=== PATIENT | male | born 2000 | race African-American/Black ===

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

== ENCOUNTER 2021-08-13 23:36 | Inpatient (IN) | payer OTHER, SELFPAY ==
[2021-08-13 23:39] VITALS: BP 145/92; PULSE 104; RESP 18; TEMP 36.3; O2SAT 98
[2021-08-13 23:54] LABS: Glucose Point of Care > 500 mg/dl (65-105)
[2021-08-14] VITALS (14 sets, daily range): BP systolic 135–154; BP diastolic 78–111; PULSE 81–112; RESP 13–20; TEMP 36–36.7; O2SAT 96–100; BMI 34.0
[2021-08-14 00:15] LABS: Basophils Percent Auto 0.4 % (0.2-1.2); Eosinophils Percent Auto 0.4 % (0-4.4); Hematocrit 49.1 % (42.0-52.0); Immature Granulocyte Absolute 0.03 K/mm3 (0.00-0.031); Immature Granulocyte Percent A 0.3 % (0-0.5); Lymphocytes Absolute Auto 3.66 K/mm3 (0.9-3.2); Lymphocytes Percent Auto 39.2 % (18.3-44.2); Mean Corpuscular HGB Conc 34.6 g/dl (32-36); Mean Corpuscular Hemoglobin 29.1 pg (26-34); Mean Corpuscular Volume 83.9 fl (80-100); Mean Platelet Volume 10.9 fl (7.4-10.4); Monocytes Absolute Auto 0.8 K/mm3 (0.1-0.6); Monocytes Percent Auto 8.7 % (2.6-8.5); Neutrophils Absolute Auto 4.8 K/mm3 (1.3-6.7); Platelet Count Result 334 k/mm3 (150-375); Red Blood Count 5.85 M/mm3 (4.6-6.20); Red Cell Distribution Width 11.9 % (11.5-14.5); White Blood Count 9.3 K/mm3 (4.5-10.0)
[2021-08-14 00:18] LABS: Alveolar/Arterial O2 Gradient 17.8 mmHg; Base Excess ABG -0.2 mEq/l (+/-2.0); Carboxyhemoglobin 0.4 % THb (0-2.0); Fractional Inspired Oxygen 21 %; HCO3 ABG 24.4 mEq/l (22.0-26.0); Methemoglobin ABG 0.3 %THb (0-1.5); Oxygen Content ABG 23.4 %vol (16.0-22.0); Oxygen Saturation ABG 96.3 % (95.0-100.0); Oxyhemoglobin 95.7 % THb (90.0-100.0); Reduced Hemoglobin 3.6 %THb (0-5.0); Total Hemoglobin 17.4 g/dL (12.0-18.0); pH ABG 7.403 (7.350-7.450)
[2021-08-14 00:20] LABS: Device ROOM AIR; Modified Allen's Test Pass; Site Drawn RIGHT RADIAL
[2021-08-14] MEDS: SODIUM CHLORIDE 0.9% IV 1,000 ML 999 ML IV CONT ×4 (00:28→05:00)
--- NOTE | 2021-08-14 00:31 | ED.GENADULT ---
HPI - General Adult General Chief complaint: Unspecified Stated complaint: High BS, nausea, urinary frequency Time Seen by Provider: 08/13/21 23:48 History of Present Illness HPI narrative: Patient is a 20-year-old male who presents to the ER with elevated blood sugars. Patient reports he has been feeling fatigued over the last 1 to 2 weeks. He has noticed increased thirst and urination. Family member who has diabetes thought these were symptoms of hyperglycemia and did a random blood sugar that was greater than 500. Patient has no previous history of diabetes. Related Data Allergies Allergy/AdvReac Type Severity Reaction Status Date / Time No Known Allergies Allergy Unknown Unverified 10/08/20 11:11 Review of Systems Review of Systems: All systems reviewed & are unremarkable except as noted in HPI and below Constitutional: Constitutional: Denies chills, Denies fever(s) and Reports lethargy ENT: Denies nasal congestion and Denies sore throat Cardiovascular: Cardiovascular: Denies chest pain, Denies radiating jaw, neck or arm pain and Denies palpitations Gastrointestinal: Gastrointestinal: Denies abdominal pain, Denies nausea and Denies vomiting Genitourinary: Genitourinary: Denies dysuria and Reports urinary frequency PMFSH Past Medical History Medical History No significant past medical history Surgical History Surgical History No history of previous surgery Family History Family History Other Diabetes mellitus Social History Social History Smoking status: Never smoker Alcohol intake: never Substance use: never Gender identity (if verbalized by the patient): Male Exam Narrative: GENERAL: Well-appearing, well-nourished, and in no acute distress. HEAD: Normocephalic, atraumatic. ENT: Mucous membranes moist. CHEST: Clear to auscultation. No respiratory distress. HEART: Regular rate and rhythm. Normal peripheral pulses. ABDOMEN: Soft, nontender, nondistended. EXTREMITIES: Normal range of motion. No edema. SKIN: Warm, dry, no rash. NEURO: Alert and oriented x3. PSYCH: Normal mood and affect. Course Course Emergency Course: Patient resting comfortably. Informed of results. Admit to hospitalist service for further treatment. Vital Signs Vital signs: Vital Signs Temperature 97.4 F L 08/13/21 23:39 Pulse Rate 104 H 08/13/21 23:39 Respiratory Rate 18 08/13/21 23:39 Blood Pressure 145/92 H 08/13/21 23:39 Pulse Oximetry 98 08/13/21 23:39 Temperature 97.4 F L 08/13/21 23:39 Pulse Rate 90 08/14/21 03:01 Respiratory Rate 16 08/14/21 03:01 Blood Pressure 144/99 H 08/14/21 03:01 Pulse Oximetry 100 08/14/21 03:01 Medical Decision Making Vital Signs Vital Signs: Vital Signs Temperature 97.4 F L 08/13/21 23:39 Pulse Rate 104 H 08/13/21 23:39 Respiratory Rate 18 08/13/21 23:39 Blood Pressure 145/92 H 08/13/21 23:39 Pulse Oximetry 98 08/13/21 23:39 Temperature 97.4 F L 08/13/21 23:39 Pulse Rate 90 08/14/21 03:01 Respiratory Rate 16 08/14/21 03:01 Blood Pressure 144/99 H 08/14/21 03:01 Pulse Oximetry 100 08/14/21 03:01 Lab Data Result diagrams: 08/14/21 00:10 08/14/21 01:07 Labs: Lab Results 08/13/21 08/13/21 08/14/21 Range/Units 00:10 23:50 00:08 WBC (4.5-10.0) K/mm3 RBC (4.6-6.20) M/mm3 Hgb (14.0-18.0) g/dL Hct (42.0-52.0) % MCV (80-100) fl MCH (26-34) pg MCHC (32-36) g/dl RDW (11.5-14.5) % Plt Count (150-375) k/mm3 MPV (7.4-10.4) fl Immature Gran % (Auto) (0-0.5) % Neut % (Auto) (45.5-73.1) % Lymph % (Auto) (18.3-44.2) % Amelia % (Auto) (2.6-8.5) % Eos % (Auto) (0-4.4) % Baso % (Auto) (0.2-
[2021-08-14 01:27] LABS: Hemoglobin A1C 11.6 % (<5.7)
[2021-08-14 01:44] LABS: Add Urine Microscopic? YES; Appearance Urine Clear (Clear); Bilirubin Urine Negative (Negative); Blood Urine Negative (Negative); Color Urine Straw (Yellow); Glucose Urine UA 3+ mg/dL (Negative); Ketones Urine 1+ mg/dL (Negative); Leukocyte Esterase Ur Negative LEU/UL (Negative); Nitrate Urine Negative (Negative); Protein Urine 1+ mg/dL (Negative); RBC Urine 0-2 /hpf (0-2); Specific Grav Ur 1.028 (1.001-1.035); Squamous Epithelial Cell Urine Rare /hpf (Few); Urobilinogen Urine Negative mg/dL (<2.0); WBC Urine 0-3 /hpf
[2021-08-14 01:49] LABS: Alanine Aminotransferase 55 U/L (4-50); Albumin Level 5.5 g/dL (3.7-5.6); Alkaline Phosphatase 208 U/L (58-237); Anion Gap 18 mmol/L (8-16); Aspartate Amino Transferase 43 U/L (17-59); Blood Urea Nitrogen 15 mg/dL (8-21); Calcium 10.4 mg/dL (8.9-10.7); Carbon Dioxide 23 mmol/L (22-30); Chloride 94 mmol/L (98-107); Estimated CRCL calculation 150 ml/min; Estimated Glomerular Filt Rate > 60; Glucose 575 mg/dL (65-110); Potassium 5.1 mmol/L (3.4-5.0); Sodium 135 mmol/L (134-143)
[2021-08-14 02:21] LABS: Glucose Point of Care 470 mg/dl (65-105)
--- NOTE | 2021-08-14 02:47 | PM.IMHP ---
H&P: HPI History of Present Illness Date/Time: 08/14/21 02:47 Chief Complaint: High blood sugar Narrative: 20-year-old overweight male presented to the ER with elevated blood sugar. The patient has been having fatigue, polydipsia and polyuria for the last 3 weeks. He reports that he is drinking large amounts of liquid but feels that water is hurting his stomach. He subsequently switched to electrolyte water, orange juice and cranberry juice. He has had nocturia but denies any dysuria. He has not had any fevers or chills. His will mother told him that he looks like he was losing weight. He does feel like his clothes are fitting looser. He had not weighed himself in a year or more so does not know what his weight was prior to onset of the symptoms. He is noticed that he feels so dry that his voice has become raspy any feels as if he cannot get the mucus up due to being so dry. One of his family members was concerned that his symptoms were consistent with hyperglycemia and checked patient's blood sugar. His blood glucose on home glucometer was greater than 500. Patient does not have a prior history of diabetes. He has noticed feeling lightheaded with standing for the last few days. He denies any chest pain, shortness a breath, cough or congestion. Denies any nausea or vomiting or abdominal symptoms. He denies any abdominal pain at this time. He has an uncle who has diabetes. His 3 sisters are relatively healthy except for some of them being obese. Patient reports that he does snore. He does occasionally catch himself jerking awake due to his snoring. Review of Systems Review of Systems: 12 systems were reviewed with pertinent positives and negatives per HPI. Except as documented in the HPI, all other systems were reviewed and are negative. 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 He is currently living on campus. He is working a part-time job on the weekends. He has 3 sisters who are relatively healthy. Smoking status: Never smoker Alcohol intake: never Substance use: never Gender identity (if verbalized by the patient): Male Spiritual care concerns: No Meds Home Medications and Allergies Home Medications Medication Instructions Recorded Confirmed Type cyclobenzaprine 10 mg PO TID PRN #14 tablet 10/08/20 Rx ibuprofen [IBU] 800 mg PO TID PRN #20 tablet 10/08/20 Rx Allergies Allergy/AdvReac Type Severity Reaction Status Date / Time No Known Allergies Allergy Unknown Unverified 10/08/20 11:11 Vital Signs Vital Signs - 24 hr 08/13/21 23:39 08/14/21 00:02 08/14/21 00:05 Temperature 97.4 F L Pulse Rate 104 H 112 H Respiratory Rate 18 15 Blood Pressure 145/92 H 137/111 H Pulse Oximetry 98 99 97 08/14/21 00:15 08/14/21 00:16 08/14/21 00:21 Temperature Pulse Rate 105 H 106 H 110 H Respiratory Rate 15 13 19 Blood Pressure 144/97 H 144/97 H Pulse Oximetry 98 98 96 08/14/21 00:23 08/14/21 02:43 Temperature Pulse Rate 111 H 86 Respiratory Rate 16 Blood Pressure Pulse Oximetry 99 Exam Narrative: PHYSICAL EXAM: WEIGHT 117.1 kg kg BMI 34.1 General: No acute distress, obese HEENT: Mucous membranes are dry, no oral pharyngeal erythema, pupils are equal and reactive, good dentition Respiratory: Clear to auscultation bilaterally, no increased work of breathing Cardiovascular: Regular rate, regular rhythm, no murmurs, 2+ bilateral radial peda
--- NOTE | 2021-08-14 04:03 | ADMGEN ---
This patient, Erik Valero, was admitted to [facility] Surg Room 300-01. Patient/family oriented to hospital policies and general routines including ID bracelet, bed and alarms, visiting hours, pain management, procedures, bathroom and other care routines, personal items, smoking policy, room service/diet, and visiting hours. Information on how to activate the Rapid Response Team has been discussed. Patient/Family are encouraged to report perceived risks to care and to ask questions if they do not understand what they are told or what they should do.
[2021-08-14 04:05] LABS: Glucose Point of Care 399 mg/dl (65-105)
[2021-08-14] MEDS: INSULIN GLARGINE (*BKC) 100 UNITS/ML 20 UNITS SUB-Q (04:46)
[2021-08-14] MEDS: INSULIN ASPART (*BKC) 100 UNITS/ML 10 UNITS SUB-Q (04:48)
[2021-08-14] MEDS: SODIUM CHLORIDE 0.9% IV 1,000 ML 150 ML IV CONT ×2 (06:18→14:04)
[2021-08-14 07:31] LABS: Glucose Point of Care 328 mg/dl (65-105)
[2021-08-14] MEDS: INSULIN ASPART (*BKC) 100 UNITS/ML SUB-Q ×6 (08:08→17:13)
[2021-08-14 11:00] LABS: Anion Gap 7 mmol/L (8-16); Blood Urea Nitrogen 9 mg/dL (8-21); Calcium 7.9 mg/dL (8.9-10.7); Carbon Dioxide 25 mmol/L (22-30); Chloride 101 mmol/L (98-107); Estimated CRCL calculation 196 ml/min; Estimated Glomerular Filt Rate > 60; Glucose 379 mg/dL (65-110); Potassium 3.7 mmol/L (3.4-5.0); Sodium 133 mmol/L (134-143)
[2021-08-14 11:54] LABS: Glucose Point of Care 364 mg/dl (65-105)
--- NOTE | 2021-08-14 14:07 | PM.IMPN ---
Progress Note: A&P Assessment and Plan (1) Diabetes mellitus, new onset: Code(s): E11.9 - Type 2 diabetes mellitus without complications Status: Acute (2) Dehydration: Code(s): E86.0 - Dehydration Status: Acute Additional Plan Patient has new onset diabetes. pt needs DM education glucose motor strips, Boat Repairer about DIet, PCP news to be set up. Pt new to be discharged on insulin Dehydration resolved can dc fluids. Subjective Date/time seen: 08/14/21 14:07 Interval history: 20-year-old overweight male presented to the ER with elevated blood sugar. The patient has been having fatigue, polydipsia and polyuria for the last 3 weeks. Newly diagnosed DM, hbaic is 11. sugars are in the 300s. Review of Systems Review of Systems: All systems reviewed & are unremarkable except as noted in HPI and below Exam Const: General: cooperative and healthy appearing; No in distress Orientation/consciousness: oriented to person HENMT: Head: normal to inspection Resp: Effort & Inspection: no respiratory distress Auscultation: no rhonchi and no wheezes Cardio: Rate: regular rate Rhythm: regular rhythm GI: Inspection: normal to inspection GI Palp: No abdominal tenderness, No Guarding due to palpation present (GI) and No Hepatomegaly present Auscultation: normal bowel sounds Neuro: General: oriented to person Objective Data Vital Signs Vital Signs: Vital Signs - 24 hr 08/13/21 23:39 08/14/21 00:02 08/14/21 00:05 Temperature 36.3 C L Pulse Rate 104 H 112 H Respiratory Rate 18 15 Blood Pressure 145/92 H 137/111 H Pulse Oximetry 98 99 97 08/14/21 00:15 08/14/21 00:16 08/14/21 00:21 Temperature Pulse Rate 105 H 106 H 110 H Respiratory Rate 15 13 19 Blood Pressure 144/97 H 144/97 H Pulse Oximetry 98 98 96 08/14/21 00:23 08/14/21 02:43 08/14/21 03:01 Temperature Pulse Rate 111 H 86 90 Respiratory Rate 16 16 Blood Pressure 144/99 H Pulse Oximetry 99 100 08/14/21 03:24 08/14/21 04:19 08/14/21 06:00 Temperature 36.7 C 36.0 C L Pulse Rate 90 96 81 Respiratory Rate 18 20 16 Blood Pressure 144/99 H 154/87 H 150/82 H Pulse Oximetry 100 100 99 08/14/21 07:40 Temperature Pulse Rate Respiratory Rate Blood Pressure Pulse Oximetry 96 Intake/Output Intake/Output: Intake & Output 08/11/21 08/12/21 08/13/21 08/14/21 23:59 23:59 23:59 23:59 Intake Total 3410 Output Total 600 Balance 2810 Meds/Results Medications: Active Medications Generic Name Dose Route Start Last Admin Trade Name Freq PRN Reason Stop Dose Admin Acetaminophen 650 mg 08/14/21 02:48 Acetaminophen 325 Mg Tablet PO Q4H PRN Mild Pain (1-3) or Fever Dextrose 12.5 gm 08/14/21 03:58 Dextrose 50% 25 Gm/50 Ml Syringe IV PUSH PRN PRN Hypoglycemia Protocol Glucagon 1 mg 08/14/21 03:58 Glucagon For Inj 1 Mg Vial IM PRN PRN Hypoglycemia Protocol Glucose 15 gm 08/14/21 03:58 Glucose Oral Gel 15 Gm Of Glucse In 37.5 Gm Tube PO PRN PRN Hypoglycemia Protocol Sodium Chloride 1,000 mls @ 150 mls/hr 08/14/21 02:50 08/14/21 14:04 Normal Saline Iv IV CONT 150 mls/hr .[id number] IKER Administration Dextrose 1,000 mls @ 100 mls/hr 08/14/21 03:58 Dextrose 5% 1,000 Ml IVPB PRN PRN Hypoglycemia Protocol Insulin Aspart 5 units 08/14/21 08:00 08/14/21 11:56 Insulin Aspart (*Bkc) 100 Units/Ml SUB-Q 5 units TIDWM IKER Administration Insulin Aspart 3 - 6 units 08/14/21 08:00 08/14/21 11:57 Insulin Aspart (*Bkc) 100 Units/Ml SUB-Q 6 units TIDWM IKER Administration Protocol Insulin Glargine 15 units 08/14/21 21:00 Insulin Glargine (*Bkc) 100 Units/Ml SUB-Q HS IKER Ondansetron HCl 4 mg 08/14/21 02:48 Ondansetron Inj 4 Mg/2 Ml Vial IV PUSH Q4H PRN Nausea Labs Labs: Laboratory Results - last 24 hr 08/13/21 08/13/21 08/14/21 0
[2021-08-14 17:07] LABS: Glucose Point of Care 335 mg/dl (65-105)
[2021-08-14 19:37] LABS: Glucose Point of Care 353 mg/dl (65-105)
[2021-08-14] MEDS: INSULIN GLARGINE (*BKC) 100 UNITS/ML 18 UNITS SUB-Q (20:06)
[2021-08-15 05:56] VITALS: BP 151/83; PULSE 79; RESP 16; TEMP 36.4; O2SAT 99
[2021-08-15 06:46] LABS: Anion Gap 8 mmol/L (8-16); Blood Urea Nitrogen 8 mg/dL (8-21); Carbon Dioxide 27 mmol/L (22-30); Chloride 97 mmol/L (98-107); Estimated CRCL calculation 196 ml/min; Estimated Glomerular Filt Rate > 60; Glucose 355 mg/dL (65-110); Potassium 4.3 mmol/L (3.4-5.0); Sodium 132 mmol/L (134-143)
[2021-08-15 07:57] LABS: Glucose Point of Care 316 mg/dl (65-105)
[2021-08-15] MEDS: INSULIN ASPART (*BKC) 100 UNITS/ML SUB-Q ×4 (08:24→17:00)
[2021-08-15 11:15] VITALS: BMI 34.0
[2021-08-15 11:38] LABS: Glucose Point of Care 465 mg/dl (65-105)
[2021-08-15] MEDS: INSULIN ASPART (*BKC) 100 UNITS/ML 13 UNITS SUB-Q (11:41)
--- NOTE | 2021-08-15 12:36 | PM.IMPN ---
Progress Note: A&P Assessment and Plan (1) Diabetes mellitus, new onset: Code(s): E11.9 - Type 2 diabetes mellitus without complications Status: Acute Assessment and Plan: - Type 1 vs Type 2. I suspicion this is Type 1 as pt. had normal glucose two years ago. Islet cell AB screen, Islet AB scn res rcv, and insulin autoantibody are pending. - Hgb A1C is 11.9. - Fasting glucose this AM is still >300, and at lunch is >400. Lantus insulin dosage increased to 22 units at this time, and the SSI is increased to moderate dosing. Will continue 5 units with meals. - Continue hypoglycemic protocol as well as glucose checks AC and HS. - Dietitian consult and cosmetology educator consult. Appreciate assistance with teaching how to count carbs. - Continue strict diabetic diet. (2) Dehydration: Code(s): E86.0 - Dehydration Status: Resolved Assessment and Plan: - Currently resolved. Additional Plan Time Spent With Patient Time with patient: 15 - 25 minutes Subjective Date/time seen: 08/15/21 0930 This pleasant, 20 year old male patient is examined at the bedside today in interval assessment after being admitted to the hospital as a newly diagnosed Diabetic, not in DKA. He denies any current complaints, citing that his polyuria, polydipsia and his fatigue are all improving. He denies any pain. His glucose is still running very high despite the insulin he is receiving. His insulin regimen is being changed today, and he should be seen by Dietitian as well as cosmetology educator. He will be discharged home on both a basal insulin as well as a short acting insulin. Appreciate care coordination efforts in determining what his insurance will pay for. In addition, an appointment for follow up will need to be made for this gentleman as he currently has no PCP, but is interested in seeing one here in [place] if one is available. Review of Systems Review of Systems: A full 12 point ROS was obtained and is otherwise unremarkable with exception of what is noted in HPI. All systems reviewed & are unremarkable except as noted in HPI and below Exam Const: General: comfortable and no acute distress HENMT: Mouth: Yes moist mucous membranes Eyes: Sclera: sclerae normal Neck: Neck: supple and no JVD Thyroid: thyroid normal Resp: Effort & Inspection: normal respiratory effort Auscultation: clear to auscultation bilaterally Cardio: Rate: regular rate Rhythm: regular rhythm GI: GI Palp: Yes Soft to palpation and No Tenderness to palpation present (GI) Auscultation: normal bowel sounds Skin: General skin exam: normal color Neuro: General: gait normal Speech: normal speech Motor exam (neuro): 5/5 motor strength present throughout and Normal motor muscle tone present throughout Sensory Exam: normal sensation Extrem: General: normal to inspection Psych: Mental Status: mental status grossly normal Affect: normal affect Thought content: Yes Normal thought content present Objective Data Vital Signs Vital Signs: Vital Signs - 24 hr 08/14/21 14:00 08/14/21 21:26 08/15/21 05:56 Temperature 97.1 F L 98.0 F 97.6 F Pulse Rate 92 81 79 Respiratory Rate 18 16 16 Blood Pressure 135/78 147/82 H 151/83 H Pulse Oximetry 100 98 99 Intake/Output Intake/Output: Intake & Output 08/12/21 08/13/21 08/14/21 08/15/21 23:59 23:59 23:59 23:59 Intake Total 4250 790 Output Total 1000 Balance 3250 790 Meds/Results Medications: Active Medications Generic Name Dose Route Start Last Admin Trade Name Freq PRN Reason Stop Dose Admin Acetaminophen 650 mg 08/14/21 02:48 Acetaminophen 325 Mg Tablet PO Q4H PRN Mild Pain (1-3) or Fever Dextrose 12.5 gm 08/15/21 09:18 Dextrose 50% 25 Gm/50 Ml Syringe IV PUSH PRN PRN Hypoglycemia Protocol Glucagon 1 mg 08/15/21 09:18 Glucagon For Inj 1 Mg Vial IM PRN PRN Hypoglycemia Protocol Glucose 15 gm
[2021-08-15 14:00] VITALS: BP 130/80; PULSE 82; RESP 14; TEMP 35.6; O2SAT 96
[2021-08-15 16:17] LABS: Glucose Point of Care 362 mg/dl (65-105)
[2021-08-15 19:55] VITALS: PULSE 89; O2SAT 98
[2021-08-15] MEDS: INSULIN GLARGINE (*BKC) 100 UNITS/ML 22 UNITS SUB-Q (20:28)
[2021-08-15 21:07] LABS: Glucose Point of Care 400 mg/dl (65-105)
[2021-08-15 21:51] VITALS: BP 143/79; PULSE 85; RESP 18; TEMP 36.1; O2SAT 96
[2021-08-16 06:00] VITALS: BP 135/73; PULSE 69; RESP 16; TEMP 35.9; O2SAT 98
[2021-08-16 06:28] LABS: Basophils Percent Auto 0.5 % (0.2-1.2); Eosinophils Percent Auto 0.7 % (0-4.4); Hematocrit 42.7 % (42.0-52.0); Hemoglobin 14.4 g/dL (14.0-18.0); Immature Granulocyte Absolute 0.01 K/mm3 (0.00-0.031); Immature Granulocyte Percent A 0.2 % (0-0.5); Lymphocytes Absolute Auto 2.71 K/mm3 (0.9-3.2); Lymphocytes Percent Auto 48.2 % (18.3-44.2); Mean Corpuscular HGB Conc 33.7 g/dl (32-36); Mean Corpuscular Hemoglobin 28.6 pg (26-34); Mean Corpuscular Volume 84.7 fl (80-100); Mean Platelet Volume 10.8 fl (7.4-10.4); Monocytes Absolute Auto 0.5 K/mm3 (0.1-0.6); Monocytes Percent Auto 9.4 % (2.6-8.5); Neutrophils Absolute Auto 2.3 K/mm3 (1.3-6.7); Platelet Count Result 226 k/mm3 (150-375); Red Blood Count 5.04 M/mm3 (4.6-6.20); Red Cell Distribution Width 11.8 % (11.5-14.5); White Blood Count 5.6 K/mm3 (4.5-10.0)
[2021-08-16 06:58] LABS: Alanine Aminotransferase 57 U/L (4-50); Albumin Level 4.1 g/dL (3.7-5.6); Alkaline Phosphatase 78 U/L (58-237); Anion Gap 7 mmol/L (8-16); Aspartate Amino Transferase 107 U/L (17-59); Bilirubin,Total 1.9 mg/dL (0.2-1.3); Blood Urea Nitrogen 8 mg/dL (8-21); Calcium 8.8 mg/dL (8.9-10.7); Carbon Dioxide 26 mmol/L (22-30); Chloride 97 mmol/L (98-107); Estimated CRCL calculation 226 ml/min; Estimated Glomerular Filt Rate > 60; Glucose 303 mg/dL (65-110); Potassium 4.3 mmol/L (3.4-5.0); Sodium 130 mmol/L (134-143)
[2021-08-16 07:48] LABS: Glucose Point of Care 331 mg/dl (65-105)
[2021-08-16] MEDS: SODIUM CHLORIDE 0.9% IV 1,000 ML 100 ML IV CONT ×2 (08:05→18:12)
[2021-08-16] MEDS: INSULIN ASPART (*BKC) 100 UNITS/ML SUB-Q ×5 (08:08→17:28)
--- NOTE | 2021-08-16 09:38 | PM.IMPN ---
Progress Note: A&P Assessment and Plan (1) Diabetes mellitus, new onset: Code(s): E11.9 - Type 2 diabetes mellitus without complications Status: Acute Assessment and Plan: - Type 1 vs Type 2. I suspicion this is Type 1 as pt. had normal glucose two years ago. Islet cell AB screen, Islet AB scn res rcv, and insulin autoantibody are pending. - Hgb A1C is 11.9. - Fasting glucose this AM is still >300. Lantus insulin dosage increased to 25 units at this time, and the SSI is increased to high dosing. Will continue 5 units with meals. - Continue hypoglycemic protocol as well as glucose checks AC and HS. - Dietitian consult and chemical educator consult. Appreciate assistance with teaching how to count carbs. - Continue strict diabetic diet. - Appreciate education on appropriate low carbohydrate snacks as pt. was given Saltines last night for a snack and there was an entire sleeve of Ritz crackers that I found at the bedside this AM. (2) Dehydration: Code(s): E86.0 - Dehydration Status: Acute Assessment and Plan: - Was resolved, but pt's sodium acutely dropped. NS at 100 ml/hr restarted. He is instructed to increase his water intake. Additional Plan Time Spent With Patient Time with patient: 15 - 25 minutes Subjective Date/time seen: 08/16/21 09:00 This pt. was examined at the bedside in interval assessment for the evaluation of how he is responding to his new diabetic regimen. I am told by the floor nurse this morning that he continually asked for snacks over the evening and night hours and that he was given Saltine crackers and diet soda. As a result, he has a fasting glucose this AM of 303 despite the increased dose of Lantus yesterday and the increased dose of SSI. In addition, when I evaluated him this morning, he had an entire roll of Ritz Crackers laying at the bedside. I reiterated to the patient the importance of adhering to a low carbohydrate diet and the consequences if he does not. He verbalized understanding that he could not have those type of snacks. He was evaluated at length by Cemetery Warden yesterday and she stated the pt. was getting tired of hearing any new information towards the end of the conversation. In addition, he has not yet seen the dietitian as consult is still pending. He will need education on counting carbs as well as proper snack options. In addition, I initiated Metformin XL 500 mg yesterday and his labs today show mild hyperbilirubinemia and mild transaminitis that he did not have before, so therefore Metformin is canceled at this time and his insulin dosages are being adjusted to high dose SSI and his lantus is raised to 25 units HS. The pt's Sodium is decreased this AM, and is a sign he is not drinking enough water. NS at 100 ml is started back and we will follow. The pt. otherwise has no complaints of pain, dyspnea, palpitations, abdominal pain and no N/V/D/urinary problems to report today. Review of Systems Review of Systems: A 12 point ROS was completed and is otherwise negative with exception of what is documented in HPI. All systems reviewed & are unremarkable except as noted in HPI and below Exam Narrative: PHYSICAL EXAM: WEIGHT 117.1 kg kg BMI 34.1 General: No acute distress, obese HEENT: Mucous membranes are dry, no oral pharyngeal erythema, pupils are equal and reactive, good dentition Respiratory: Clear to auscultation bilaterally, no increased work of breathing Cardiovascular: Regular rate, regular rhythm, no murmurs, 2+ bilateral radial pedal pulses Gastrointestinal: Soft, nontender, nondistended, normoactive bowel sounds Skin: No jaundice, no pallor, tattoo on back of her right wrist Musculoskeletal: No clubbing, cyanosis or edema Neurological: Alert and oriented, speech is clear, no facial asymmetry Psychiatric: Appropriate mood and affect, pleasant and cooperative, judgment insight intact : Deferred Hematologic/lymphatic: No petechiae,
--- NOTE | 2021-08-16 11:20 | PCCDE ---
Diabetes education f/up: Pt received 22 units Lantus last night and FBS today was 331mg/dl; provider increased Lantus for tonight to 25 units. C-peptide etc are still pending. Pt appears to have some insulin resistance. Metformin was discontinued. Creatine is wnl; feel pt would benefit from Metformin. Met with pt; he was asking if he can eat crackers. RD has not seen yet. Began teaching for carb counting. Discussed importance of what, how much and when you eat. Discussed importance of PA to reverse insulin resistance and lower BG. Encouraged pt and RN to have pt move about room/hallways as allowed. Pt has not set up with PCP yet (he has/had quality assurance) He wants to discuss with his mother. Encouraged to do EDDIE and enlist the help of special needs caregiver prn.
[2021-08-16 12:15] LABS: Glucose Point of Care 456 mg/dl (65-105)
[2021-08-16 12:15] LABS: Glucose Point of Care > 500 mg/dl (65-105)
[2021-08-16] MEDS: INSULIN ASPART (*BKC) 100 UNITS/ML 9 UNITS SUB-Q (12:15)
[2021-08-16 13:20] LABS: Glucose Point of Care > 500 mg/dl (65-105)
--- NOTE | 2021-08-16 13:54 | PCDIET ---
Consult for Diabetic Diet education as pt is a newly diagnosed diabetic. Pt was educated on carbohydrate sources, appropriate carb servings and portions sizes and meal pattern and timing for improved glucose control. Handouts provided and encouraged further education needs be met through outpatient nutrition services. Thank you for the referral
[2021-08-16 14:00] VITALS: BP 142/87; PULSE 93; RESP 16; TEMP 36.2; O2SAT 98
[2021-08-16 14:19] LABS: Glucose Point of Care 493 mg/dl (65-105)
[2021-08-16 14:47] LABS: Glucose Point of Care 459 mg/dl (65-105)
[2021-08-16 15:53] LABS: Fractional Inspired Oxygen 21 %; HCO3 ABG 29.8 mEq/l (22.0-26.0); Oxygen Content ABG 19.8 %vol (16.0-22.0); Oxygen Saturation ABG 97.6 % (95.0-100.0); Oxyhemoglobin 96.7 % THb (90.0-100.0); PCO2 ABG 44.3 mmHg (35.0-45.0); PO2 ABG 97.3 mmHg (80.0-100.0); PO2 FiO2 Ratio Arterial Blood 4.63 %; Total Hemoglobin 14.5 g/dL (12.0-18.0); pH ABG 7.446 (7.350-7.450)
[2021-08-16 15:54] LABS: Modified Allen's Test Pass; Site Drawn RIGHT RADIAL
[2021-08-16 17:28] LABS: Glucose Point of Care 360 mg/dl (65-105)
[2021-08-16 18:59] LABS: C-Peptide 0.67 ng/mL (0.80-3.85)
[2021-08-16] MEDS: INSULIN GLARGINE (*BKC) 100 UNITS/ML 25 UNITS SUB-Q (20:32)
[2021-08-16 21:00] VITALS: O2SAT 97
[2021-08-16 21:35] LABS: Glucose Point of Care 357 mg/dl (65-105)
[2021-08-16 22:00] VITALS: BP 139/80; PULSE 81; RESP 18; TEMP 36.1; O2SAT 99
--- NOTE | 2021-08-16 23:42 | PC.NURSE ---
Spoke with Elisabet DARBY by phone about patients BS of [phone]. A one time dose of Novolog 8 units was ordered. Before administration of insulin the blood sugar was re-checked and found to be 286. MEHNAZ Bhandari was called back and verbal orders given to old one time dose.
[2021-08-16 23:52] LABS: Glucose Point of Care 286 mg/dl (65-105)
[2021-08-17 06:00] VITALS: BP 158/79; PULSE 77; RESP 18; TEMP 36.1; O2SAT 99
[2021-08-17 06:47] LABS: Basophils Percent Auto 0.3 % (0.2-1.2); Eosinophils Absolute Auto 0.1 K/mm3 (0-0.3); Eosinophils Percent Auto 0.9 % (0-4.4); Hematocrit 41.4 % (42.0-52.0); Hemoglobin 14.1 g/dL (14.0-18.0); Immature Granulocyte Absolute 0.01 K/mm3 (0.00-0.031); Immature Granulocyte Percent A 0.1 % (0-0.5); Lymphocytes Absolute Auto 3.37 K/mm3 (0.9-3.2); Lymphocytes Percent Auto 50.1 % (18.3-44.2); Mean Corpuscular HGB Conc 34.1 g/dl (32-36); Mean Corpuscular Hemoglobin 28.6 pg (26-34); Monocytes Absolute Auto 0.6 K/mm3 (0.1-0.6); Monocytes Percent Auto 8.8 % (2.6-8.5); Neutrophils Absolute Auto 2.7 K/mm3 (1.3-6.7); Neutrophils Percent Auto 39.8 % (45.5-73.1); Platelet Count Result 229 k/mm3 (150-375); Red Blood Count 4.93 M/mm3 (4.6-6.20); Red Cell Distribution Width 11.7 % (11.5-14.5); White Blood Count 6.7 K/mm3 (4.5-10.0)
[2021-08-17 07:01] LABS: Alanine Aminotransferase 53 U/L (4-50); Albumin Level 3.7 g/dL (3.7-5.6); Alkaline Phosphatase 79 U/L (58-237); Anion Gap 5 mmol/L (8-16); Aspartate Amino Transferase 72 U/L (17-59); Bilirubin,Total 1.1 mg/dL (0.2-1.3); Blood Urea Nitrogen 7 mg/dL (8-21); Calcium 8.7 mg/dL (8.9-10.7); Carbon Dioxide 29 mmol/L (22-30); Chloride 101 mmol/L (98-107); Estimated CRCL calculation 196 ml/min; Estimated Glomerular Filt Rate > 60; Glucose 246 mg/dL (65-110); Magnesium 1.9 mg/dL (1.6-2.3); Potassium 3.7 mmol/L (3.4-5.0); Sodium 135 mmol/L (134-143)
--- NOTE | 2021-08-17 07:48 | PC.NURSE ---
Outpatient referral faxed to [facility] for initial DSMT and MNT.
[2021-08-17 08:05] LABS: Glucose Point of Care 252 mg/dl (65-105)
[2021-08-17] MEDS: INSULIN ASPART (*BKC) 100 UNITS/ML SUB-Q ×6 (08:13→16:49)
--- NOTE | 2021-08-17 09:15 | PM.IMPN ---
Progress Note: A&P Assessment and Plan (1) Diabetes mellitus, new onset: Code(s): E11.9 - Type 2 diabetes mellitus without complications Status: Acute Assessment and Plan: - Type 1 vs Type 2. I suspicion this is Type 1 as pt. had normal glucose two years ago. Islet cell AB screen, Islet AB scn res rcv, and insulin autoantibody are pending. - Hgb A1C is 11.9. - Fasting glucose this AM is still >300. Lantus insulin dosage increased to 25 units at this time, and the SSI is increased to high dosing. Will continue 5 units with meals. - Continue hypoglycemic protocol as well as glucose checks AC and HS. - Dietitian consult and telecommunicator supervisor consult. Appreciate assistance with teaching how to count carbs. - Continue strict diabetic diet. - Appreciate education on appropriate low carbohydrate snacks as pt. was given Saltines last night for a snack and there was an entire sleeve of Ritz crackers that I found at the bedside this AM. Discussed dietary modifications at bedside Patient reported he understood diabetic diet and be compliant with medication regimen (2) Dehydration: Code(s): E86.0 - Dehydration Status: Acute Assessment and Plan: - Was resolved, but pt's sodium acutely dropped. NS at 100 ml/hr restarted. He is instructed to increase his water intake. ---resolved Subjective Date/time seen: 08/17/21 09:15 patient is alert and oriented x4. He was sitting up in bed eating breakfast. Patient has been made aware of his diagnosis. He was educated on dietary consumption. Reportedly the patient had a positive nits crackers yesterday. Attempted to discuss nutritional needs. Patient preferred to follow-up with a registered dietitian and outpatient basis. His LFTs are mildly elevated, fever WNL previously, continue to trend. Patient denies history of elevated glucose levels are appropriate. Patient reports that his sister is a diabetic, he does not know if she has diabetes type 1 or 2. He has minimal contact with his family. No acute events reported by RN during the night. Continue to provide insulin, maintain blood glucose levels. Review of Systems Review of Systems: All systems reviewed & are unremarkable except as noted in HPI and below Exam Narrative: General: No acute distress. Obese Mental Status: Awake, alert and oriented to person, place, and time with clear speech. Skin: Skin in warm, dry and intact without rashes or lesions. Head: Normocephalic and atraumatic. Eyes: Conjunctivae are clear without exudates or hemorrhage. Sclera is non-icteric. EOM are intact, PERRLA. Ears: The external ear and canal are non-tender and without swelling or discharge. Nose: Nasal mucosa is pink and moist. Septum midline. Nares patent bilaterally. Throat: Oral mucosa pink and moist with good dentition. Tongue midline. Neck: The neck supple without adenopathy. Trachea midline. No JVD. Cardiac: S1 and S2 regular rate and rhythm. No murmurs, gallops, or rubs auscultated. Respiratory: Chest wall symmetric, nontender and without deformity or trauma. Respirations even and unlabored. Lung sounds are clear to auscultation in all lobes bilaterally without wheezes, rhonchi, or rales. Abdominal: Abdomen soft, round and non-tender to palpation. Bowel sounds present and normoactive in all 4 quadrants. Spine: Neck and back with grossly normal curvature, no deformity in appearance or signs of trauma. Extremities: Upper and lower extremities atraumatic without tenderness or deformity. Full range of motion and muscle strength 5/5 to all extremities bilaterally. Neurological: Full and symmetric motor and light touch sensation bilaterally. Cranial nerves II-XII grossly intact. Objective Data Vital Signs Vital Signs: Vital Signs - 24 hr 08/16/21 14:00 08/16/21 21:00 08/16/21 22:00 Temperature 97.1 F L 96.9 F L Pulse Rate 93 81 Respiratory Rate 16 18 Blood Pressure 142/87 H 139/80 Pulse Oximetry 98 97 99 08/17/21 0
[2021-08-17 12:13] LABS: Glucose Point of Care 366 mg/dl (65-105)
[2021-08-17 14:00] VITALS: BP 144/75; PULSE 71; RESP 18; TEMP 35.9; O2SAT 99
[2021-08-17 15:20] VITALS: BP 144/75
[2021-08-17] MEDS: SODIUM CHLORIDE 0.9% IV 1,000 ML 100 ML IV CONT (15:34)
[2021-08-17 16:42] LABS: Glucose Point of Care 334 mg/dl (65-105)
[2021-08-17] MEDS: INSULIN GLARGINE (*BKC) 100 UNITS/ML 25 UNITS SUB-Q (20:05)
[2021-08-17 21:20] LABS: Glucose Point of Care 292 mg/dl (65-105)
[2021-08-17 22:00] VITALS: BP 132/77; PULSE 79; RESP 16; TEMP 36.2; O2SAT 98
[2021-08-18] MEDS: SODIUM CHLORIDE 0.9% IV 1,000 ML 100 ML IV CONT ×3 (01:46→22:10)
[2021-08-18 06:00] VITALS: BP 137/84; PULSE 66; RESP 20; TEMP 36; O2SAT 97
[2021-08-18 08:00] LABS: Alanine Aminotransferase 68 U/L (4-50); Albumin Level 3.9 g/dL (3.7-5.6); Alkaline Phosphatase 82 U/L (58-237); Anion Gap 6 mmol/L (8-16); Aspartate Amino Transferase 83 U/L (17-59); Bilirubin,Total 1.2 mg/dL (0.2-1.3); Blood Urea Nitrogen 4 mg/dL (8-21); Calcium 8.4 mg/dL (8.9-10.7); Carbon Dioxide 26 mmol/L (22-30); Chloride 100 mmol/L (98-107); Estimated CRCL calculation 226 ml/min; Estimated Glomerular Filt Rate > 60; Glucose 204 mg/dL (65-110); Potassium 3.6 mmol/L (3.4-5.0); Sodium 132 mmol/L (134-143)
[2021-08-18 08:04] LABS: Magnesium 1.9 mg/dL (1.6-2.3)
[2021-08-18 08:06] LABS: Basophils Percent Auto 0.3 % (0.2-1.2); Eosinophils Absolute Auto 0.1 K/mm3 (0-0.3); Eosinophils Percent Auto 0.9 % (0-4.4); Hematocrit 43.4 % (42.0-52.0); Hemoglobin 14.3 g/dL (14.0-18.0); Immature Granulocyte Absolute 0.01 K/mm3 (0.00-0.031); Immature Granulocyte Percent A 0.1 % (0-0.5); Lymphocytes Percent Auto 45.7 % (18.3-44.2); Mean Corpuscular HGB Conc 32.9 g/dl (32-36); Mean Corpuscular Hemoglobin 28.6 pg (26-34); Mean Corpuscular Volume 86.8 fl (80-100); Mean Platelet Volume 10.8 fl (7.4-10.4); Monocytes Absolute Auto 0.5 K/mm3 (0.1-0.6); Neutrophils Absolute Auto 3.1 K/mm3 (1.3-6.7); Platelet Count Result 244 k/mm3 (150-375); Red Cell Distribution Width 11.8 % (11.5-14.5); White Blood Count 6.8 K/mm3 (4.5-10.0)
[2021-08-18 08:18] VITALS: BP 134/88; PULSE 69; O2SAT 98
[2021-08-18] MEDS: INSULIN ASPART (*BKC) 100 UNITS/ML SUB-Q ×6 (08:23→17:05)
[2021-08-18] MEDS: lisinopriL 2.5 MG TABLET PO (08:24)
[2021-08-18] MEDS: INSULIN GLARGINE (*BKC) 100 UNITS/ML 15 UNITS SUB-Q (08:24)
[2021-08-18 08:26] LABS: Glucose Point of Care 221 mg/dl (65-105)
[2021-08-18 12:21] LABS: Glucose Point of Care 300 mg/dl (65-105)
--- NOTE | 2021-08-18 12:53 | PM.IMPN ---
Progress Note: A&P Assessment and Plan (1) Diabetes mellitus, new onset: Code(s): E11.9 - Type 2 diabetes mellitus without complications Status: Acute Assessment and Plan: - Type 1 vs Type 2. I suspicion this is Type 1 as pt. had normal glucose two years ago. Islet cell AB screen, Islet AB scn res rcv, and insulin autoantibody are pending. - Hgb A1C is 11.9. - Fasting glucose this AM is still >300. Lantus insulin dosage increased to 25 units at this time, 15 units of Lantus in the morning, and the SSI is increased to high dosing. Will continue 5 units with meals. - Continue hypoglycemic protocol as well as glucose checks AC and HS. - Dietitian consult and family life educator consult. Appreciate assistance with teaching how to count carbs. - Continue strict diabetic diet. - Appreciate education on appropriate low carbohydrate snacks as pt. was given Saltines last night for a snack and there was an entire sleeve of Ritz crackers that I found at the bedside this AM. Discussed dietary modifications at bedside Patient reported he understood diabetic diet and be compliant with medication regimen (2) Dehydration: Code(s): E86.0 - Dehydration Status: Acute Assessment and Plan: - Was resolved, but pt's sodium acutely dropped. NS at 100 ml/hr restarted. He is instructed to increase his water intake. ---resolved Subjective Date/time seen: 08/18/21 12:53 Patient is alert and oriented x4. He continues to have elevated blood glucose. Patient reports he does order snacks from dietary, discontinued snack ordering. Continue to educate the patient about diabetes mellitus. Patient does not appear to understand or is reluctantly cooperative with his plan of care. no acute concerns at this time. Continue Lantus sliding scale. Review of Systems Review of Systems: All systems reviewed & are unremarkable except as noted in HPI and below Exam Const: General: cooperative, healthy appearing, comfortable and no acute distress; No in distress Orientation/consciousness: oriented to person HENMT: Head: normal to inspection Mouth: Yes moist mucous membranes Eyes: Sclera: sclerae normal Neck: Neck: supple and no JVD Thyroid: thyroid normal Resp: Effort & Inspection: normal respiratory effort and no respiratory distress Auscultation: clear to auscultation bilaterally, no rhonchi and no wheezes Cardio: Rate: regular rate Rhythm: regular rhythm GI: Inspection: normal to inspection Auscultation: normal bowel sounds Skin: General skin exam: normal color Neuro: General: oriented to person and gait normal Speech: normal speech Motor exam (neuro): 5/5 motor strength present throughout and Normal motor muscle tone present throughout Sensory Exam: normal sensation Extrem: General: normal to inspection Psych: Mental Status: mental status grossly normal Affect: normal affect Objective Data Vital Signs Vital Signs: Vital Signs - 24 hr 08/17/21 14:00 08/17/21 15:20 08/17/21 22:00 Temperature 96.7 F L 97.2 F L Pulse Rate 71 79 Respiratory Rate 18 16 Blood Pressure 144/75 H 144/75 H 132/77 Pulse Oximetry 99 98 08/18/21 06:00 Temperature 96.8 F L Pulse Rate 66 Respiratory Rate 20 Blood Pressure 137/84 Pulse Oximetry 97 Intake/Output Intake/Output: Intake & Output 08/15/21 08/16/21 08/17/21 08/18/21 23:59 23:59 23:59 23:59 Intake Total 1820 3720 3590 2610 Output Total 2600 1450 Balance 1820 1120 2140 2610 Meds/Results Medications: Active Medications Generic Name Dose Route Start Last Admin Trade Name Freq PRN Reason Stop Dose Admin Acetaminophen 650 mg 08/14/21 02:48 Acetaminophen 325 Mg Tablet PO Q4H PRN Mild Pain (1-3) or Fever Dextrose 12.5 gm 08/15/21 09:18 Dextrose 50% 25 Gm/50 Ml Syringe IV PUSH PRN PRN Hypoglycemia Protocol Glucagon 1 mg 08/15/21 09:18 Glucagon For Inj 1 Mg Vial IM PRN PRN Hypoglycemia
[2021-08-18 13:39] VITALS: O2SAT 97
[2021-08-18 15:00] VITALS: BP 132/72; PULSE 87; RESP 18; TEMP 36.3; O2SAT 100
[2021-08-18 16:57] LABS: Glucose Point of Care 299 mg/dl (65-105)
[2021-08-18] MEDS: INSULIN GLARGINE (*BKC) 100 UNITS/ML 25 UNITS SUB-Q (20:15)
[2021-08-18 20:32] LABS: Glucose Point of Care 310 mg/dl (65-105)
[2021-08-18 20:58] VITALS: BP 125/82; PULSE 77; RESP 18; TEMP 37.4; O2SAT 100
[2021-08-19 05:28] VITALS: BP 133/79; PULSE 66; RESP 16; TEMP 36.4; O2SAT 100
[2021-08-19 07:34] LABS: Basophils Percent Auto 0.4 % (0.2-1.2); Eosinophils Absolute Auto 0.1 K/mm3 (0-0.3); Hemoglobin 14.2 g/dL (14.0-18.0); Immature Granulocyte Absolute 0.03 K/mm3 (0.00-0.031); Immature Granulocyte Percent A 0.4 % (0-0.5); Lymphocytes Absolute Auto 3.24 K/mm3 (0.9-3.2); Lymphocytes Percent Auto 41.9 % (18.3-44.2); Mean Corpuscular Hemoglobin 29.2 pg (26-34); Mean Corpuscular Volume 88.3 fl (80-100); Mean Platelet Volume 10.6 fl (7.4-10.4); Monocytes Absolute Auto 0.6 K/mm3 (0.1-0.6); Neutrophils Absolute Auto 3.7 K/mm3 (1.3-6.7); Neutrophils Percent Auto 48.3 % (45.5-73.1); Platelet Count Result 254 k/mm3 (150-375); Red Blood Count 4.87 M/mm3 (4.6-6.20); Red Cell Distribution Width 12.1 % (11.5-14.5); White Blood Count 7.7 K/mm3 (4.5-10.0)
[2021-08-19 07:46] VITALS: O2SAT 95
[2021-08-19 07:53] LABS: Glucose Point of Care 181 mg/dl (65-105)
[2021-08-19 08:00] LABS: Alanine Aminotransferase 74 U/L (4-50); Albumin Level 3.6 g/dL (3.5-5.1); Alkaline Phosphatase 66 U/L (38-126); Anion Gap 7 mmol/L (8-16); Aspartate Amino Transferase 79 U/L (17-59); Bilirubin,Total 1.3 mg/dL (0.2-1.3); Blood Urea Nitrogen 4 mg/dL (9-20); Calcium 8.5 mg/dL (8.4-10.2); Carbon Dioxide 24 mmol/L (22-30); Chloride 102 mmol/L (98-107); Estimated CRCL calculation 224 ml/min; Estimated Glomerular Filt Rate > 60; Glucose 189 mg/dL (65-110); Potassium 3.8 mmol/L (3.4-5.0); Sodium 133 mmol/L (137-145)
[2021-08-19] MEDS: INSULIN ASPART (*BKC) 100 UNITS/ML SUB-Q (08:31)
[2021-08-19] MEDS: INSULIN GLARGINE (*BKC) 100 UNITS/ML 15 UNITS SUB-Q (08:32)
[2021-08-19] MEDS: lisinopriL 2.5 MG TABLET PO (08:32)
[2021-08-19 08:45] LABS: Creatine Kinase 114 U/L (55-170)
[2021-08-19 08:55] LABS: Creatine Kinase MB 0.3 ng/mL (0.0-2.37)
--- NOTE | 2021-08-19 11:22 | PM.DS ---
DS: Admitting Diagnosis Discharge Date 08/19/2021 Admitting Diagnosis Diabetes mellitus, new onset Dehydration DS: Discharge Diagnosis Discharge Diagnosis (1) Diabetes mellitus, new onset: Code(s): E11.9 - Type 2 diabetes mellitus without complications Status: Acute Assessment and Plan: - Type 1 vs Type 2. I suspicion this is Type 1 as pt. had normal glucose two years ago. Islet cell AB screen, Islet AB scn res rcv, and insulin autoantibody are pending. - Hgb A1C is 11.9. - Fasting glucose this AM is still >300. Lantus insulin dosage increased to 25 units at this time, 15 units of Lantus in the morning, and the SSI is increased to high dosing. Will continue 5 units with meals. - Continue hypoglycemic protocol as well as glucose checks AC and HS. - Dietitian consult and hematology nurse educator consult. Appreciate assistance with teaching how to count carbs. - Continue strict diabetic diet. - Appreciate education on appropriate low carbohydrate snacks as pt. was given Saltines last night for a snack and there was an entire sleeve of Ritz crackers that I found at the bedside this AM. Discussed dietary modifications at bedside Patient reported he understood diabetic diet and be compliant with medication regimen (2) Dehydration: Code(s): E86.0 - Dehydration Status: Acute Assessment and Plan: - Was resolved, but pt's sodium acutely dropped. NS at 100 ml/hr restarted. He is instructed to increase his water intake. ---resolved DS: Summary Hospital Course Reason for hospitalization: New onset diabetes mellitus Dehydration Hospital Course: Patient is a 20-year-old male with past medical history of obesity. He presented to the emergency department due to feeling fatigued, polydipsia, polyuria for the approximately 3 weeks. The patient was found to have elevated blood glucose in the emergency department. Patient also reports that he has been drinking large amounts of liquid but still feel that the water is hurting his stomach. He subsequently switch electrolyte water, orange juice and cranberry juice. He has had nocturia but denies any dysuria. He denies any fever, chills or episodes of emesis. His mother told him that he looks like he was losing weight. He does feel as though his clothes are fitting looser and has not weighed himself for over a year. Patient also reported that he had a dry throat began to feel that his voice has become raspy and he is unable to cough up mucus. Who is 1 of his family members became concerned with symptoms, and checked the patient's blood sugar. His blood glucose at home was greater than 500 which prompted him to come to the emergency department. The patient does not have a prior history of diabetes mellitus however he does have a family history. His sister and uncle have diabetes. Patient also reports that he has noticed a feeling lightheaded when standing. He denies any chest pain, shortness breast, cough or congestion. He denied any nausea or episodes of emesis. Denied any abdominal symptoms or loss of bowel or bladder. While in the emergency department the patient had labs and imaging performed. His labs were significant for a hemoglobin A1c of 11.6, WBC 9.3, hemoglobin 17, hematocrit 49.1, platelet 334, sodium 135, potassium 5.1, chloride 94, BUN 15, creatinine 0.9 mildly elevated ALT of 55 other LFTs WNL. Urinalysis appeared to have 3+ glucose, 1+ protein, 1+ ketone. The patient received a total of 3 L of normal saline in the emergency department and then initiated on 50 mL an hour. He did have some mild ketosis but is not overtly acidotic in the emergency department and a mildly elevated anion gap and mild elevated hyperkalemia likely associated to his hyperglycemia and dehydration. Patient was not in DKA. Patient did receive a 20 units of Lantus in the emergency department, with repeat Accu-Cheks after IV fluid administration. Patient continued to have elevated blood glucose le
[2021-08-27 22:56] LABS: Islet Cell Antibody Screen NEGATIVE (NEGATIVE)
== END 2021-08-19 12:10 | disposition home or self-care (01) | DRG 420 ==
LOC: ANHED 08-14 00:20 → ANH3MEDSUR 08-14 02:59
PROVIDERS: Family Medicine; Nurse Practitioner Adult Health; Admitting Provider Internal Medicine; Emergency Provider Emergency Medicine; PCP Pediatrics; Visit Provider Nurse Practitioner Family
DX: E10.10 Type 1 diabetes mellitus with ketoacidosis without coma (principal); E86.0 Dehydration; Z83.3 Family history of diabetes mellitus; E66.3 Overweight
CPT/HCPCS: 36415; 36600; 80048; 80053; 81001; 82375; 82550; 82553; 82805; 82948; 83036; 83050; 83735; 84681; 85025; 86337; 86341; 96360; 96361; 99285; A9270; G0378; G0379; J1815; J7030